=== PATIENT | male | born 1950 | race Caucasian/White ===

== ENCOUNTER 2017-02-07 21:53 | Observation (INO) | payer OTHER ==
--- NOTE | 2017-02-07 22:18 | EDPHY ---
H & P Stated Complaint: nose bleed since 1999, sent from [place] HPI/ROS: HPI CHIEF COMPLAINT: Epistaxis HISTORY OF PRESENT ILLNESS: This patient very pleasant 66-year-old male presents emergency room from [facility] with a epistaxis. Tells me around 8:20 a.m. developed a right Brush epistaxis. no trauma. He denies being on any blood thinners except aspirin. States that he went to [facility] for epistaxis where he had his nose packed the bleeding stops 3 hours and then return. He went back to [facility] and had a Pitt catheter placed for a right Brush posterior bleed and was transferred here to the emergency room. Upon arrival here in emergency room the patient is not overtly hypertensive, he is having a slow trickle of dark blood from the right Brush. On exam it does appear posterior. No bleeding at the left near. Past Medical History: Hypertension Past Surgical History: denies recent surgical history Social History: Smokes tobacco, denies alcohol drugs, lives in [facility] Family History: Noncontributory ROS REVIEW OF SYSTEMS: A comprehensive 10 point review of systems is otherwise negative aside from elements mentioned in the history of present illness. Exam Constitutional triage nursing summary reviewed, vital signs reviewed, awake/ alert. Eyes normal conjunctivae and sclera, EOMI, PERRLA. HENT bilateral narrow exam: Right Nare filled with bright red blood, appears to be posterior bleed, left knee are clear, posterior pharynx shows blood in the posterior I do not appreciate active arterial bleeding in the posterior pharynx., atraumatic, moist mucus membranes, no epistaxis, neck supple / no meningismus, no raccoon eyes. Respiratory clear to auscultation bilaterally, normal breath sounds, no respiratory distress, no wheezing. Cardiovascular rate normal, regular rhythm, no murmur, no edema, distal pulses normal. Gastrointestinal soft, non-tender, no rebound, no guarding, normal bowel sounds, no distension, no pulsatile mass. Genitourinary no CVA tenderness. Musculoskeletal no midline vertebral tenderness, full range of motion, no calf swelling, no tenderness of extremities, no meningismus, good pulses, neurovascularly intact. Skin pink, warm, & dry, no rash, skin atraumatic. Neurologic awake, alert and oriented x 3, AAOx3, moves all 4 extremities equally, motor intact, sensory intact, CN II-XII intact, normal cerebellar, normal vision, normal speech. Psychiatric normal mood/affect. Heme/Lymph/Immune no lymphadenopathy. Differential Diagnosis: Includes but is not limited to in a particular order, right Brush posterior epistaxis, arterial bleed, venous bleed. Medical Decision Making: Plan for this patient given that he was in [facility] in the emergency room twice with failure of to control of epistaxis patient be packed here bilaterally AP packing. Check basic blood work. Placed on monitoring manager. Check coags. Patient will most likely need to be admitted. Patient will most likely need to be admitted due to bilateral packing AP packing. And observation for epistaxis. Re-evaluation: Procedure: Epistaxis control. After verbal consent was obtained, the patient was anesthetized with Afrin. The anterior epistaxis was identified. The patient was treated with to AP rhino rocket packing. Following the procedure the patient was re-examined and the bleeding was well controlled. The patient tolerated the procedure well. The procedure was performed by myself. 1206AM: Patient continues to bleed. I consult ENT Dr. Lawrence. She plans on coming to the emergency room to evaluate the patient. 0113AM: Dr. Bowman with ENT has seen evaluated the patient. Plan to go to the OR to further explore the right epistaxis. Source: Patient - Personal History Current Tetanus/Diphtheria Vaccine: Yes Current Tetanus Diphtheria and Acellular Pertussis (TDAP): Yes - Medical/Surgical History Hx Asthma: No Hx Chronic Respiratory Disease: No Hx Diabetes: No Hx Cardiac Disease: No Hx Renal Disease: No Hx Cirrhosis: No Hx Alcoholism: No Hx HIV/AIDS: No Hx Splenectomy or Spleen Trauma: No Other PMH: denies - Social History Smoking Status: Former smoker Constitutional: Initial Vital Signs Temperature (C) 36.7 C 02/07/17 22:04 Heart Rate 109 H 02/07/17 22:04 Respiratory Rate 18 02/07/17 22:04 Blood Pressure 151/87 H 02/07/17 22:04 O2 Sat (%) 95 02/07/17 22:04 O2 Delivery Mode Room Air Allergies/Adverse Reactions: No Known Allergies Allergy (Unverified 02/07/17 22:03) Home Medications: Medication Instructions Recorded Aspirin 02/07/17 Medical Decision Making - Data Points Laboratory Results: Laboratory Results 02/07/17 22:50 02/07/17 22:50 02/07/17 02/07/17 02/07/17 22:50 22:50 22:50 WBC 15.60 10^3/uL H 10^3/uL (3.80-9.50) RBC 4.72 10^6/uL 10^6/uL (4.40-6.38) Hgb 14.8 g/dL g/dL (13.7-17.5) Hct 45.0 % % (40.0-51.0) MCV 95.3 fL fL (81.5-99.8) MCH 31.4 pg pg (27.9-34.1) MCHC 32.9 g/dL g/dL (32.4-36.7) RDW 14.2 % % (11.5-15.2) Plt Count 233 10^3/uL 10^3/uL (150-400) MPV 10.9 fL fL (8.7-11.7) Neut % (Auto) 76.9 % H % (39.3-74.2) Lymph % (Auto) 15.1 % % (15.0-45.0) [place] % (Auto) 6.9 % % (4.5-13.0) Eos % (Auto) 0.2 % L % (0.6-7.6) Baso % (Auto) 0.4 % % (0.3-1.7) Nucleat RBC Rel Count 0.0 % % (0.0-0.2) Absolute Neuts (auto) 11.99 10^3/uL H 10^3/uL (1.70-6.50) Absolute Lymphs (auto) 2.35 10^3/uL 10^3/uL (1.00-3.00) Absolute Monos (auto) 1.08 10^3/uL H 10^3/uL (0.30-0.80) Absolute Eos (auto) 0.03 10^3/uL 10^3/uL (0.03-0.40) Absolute Basos (auto) 0.07 10^3/uL 10^3/uL (0.02-0.10) Absolute Nucleated RBC 0.00 10^3/uL 10^3/uL (0-0.01) Immature Gran % 0.5 % % (0.0-1.1) Immature Gran # 0.08 10^3/uL 10^3/uL (0.00-0.10) PT 14.1 SEC SEC (12.0-15.0) INR 1.10 (0.83-1.16) APTT 27.1 SEC SEC (23.0-38.0) Sodium 138 mEq/L mEq/L (134-144) Potassium 4.7 mEq/L mEq/L (3.5-5.2) Chloride 110 mEq/L mEq/L (97-110) Carbon Dioxide 19 mEq/l L mEq/l (22-31) Anion Gap 9 mEq/L mEq/L (8-16) BUN 55 mg/dL H mg/dL (7-23) Creatinine 1.1 mg/dL mg/dL (0.7-1.3) Estimated GFR > 60 Glucose 117 mg/dL H mg/dL (70-100) Calcium 9.5 mg/dL mg/dL (8.5-10.4) Medications Given: Discontinued Medications Fentanyl (Sublimaze) 50 mcg IVP EDNOW ONE Stop: 02/07/17 22:41 Last Admin: 02/07/17 22:49 Dose: 50 mcg Sodium Chloride (Ns) 1,000 mls @ 0 mls/hr IV ONCE ONE PRN Reason: Wide Open Stop: 02/07/17 23:49 Last Admin: 02/07/17 23:00 Dose: 1,000 mls Oxymetazoline HCl (Afrin Nasal [place]) 2 sprays EACHNARE EDNOW ONE Stop: 02/07/17 23:46 Last Admin: 02/07/17 22:45 Dose: 30 spray Oxymetazoline HCl (Afrin Nasal [place]) 2 sprays EACHNARE EDNOW ONE Stop: 02/07/17 23:46 Last Admin: 02/07/17 22:45 Dose: 30 sprays Departure - Departure Disposition: To OP Cath/Surgery Clinical Impression: Epistaxis Condition: Serious Instructions: Nosebleed (ED) Referrals: Patient,NotPresent [Primary Care Provider] - As per Instructions
[2017-02-07] MEDS ORDERED: SILVER NITRATE APPLICATOR 1 APPL TP ONE (22:22)
[2017-02-07] MEDS ORDERED: OXYMETAZOLINE 30 ML NASAL SPRAY ONE (22:22)
[2017-02-07] MEDS ORDERED: fentaNYL 100 MCG/2 ML INJ ONE (22:40)
[2017-02-07] MEDS ORDERED: fentaNYL 100 MCG/2 ML INJ IVP ONE (22:40)
[2017-02-07 22:59] LABS: % IMMATURE GRANULYOCYTES 0.5 % (0.0-1.1); ABSOLUTE IMMATURE GRANULOCYTES 0.08 10^3/uL (0.00-0.10); ADD DIFF? NO; ADD MORPH? NO; ADD SCAN? NO; ATYPICAL LYMPHOCYTE FLAG 10 (0-99); FRAGMENT RBC FLAG 0 (0-99); HEMOGLOBIN 14.8 g/dL (13.7-17.5); LEFT SHIFT FLG 0 (0-99); LIPEMIA HEMOLYSIS FLAG 80 (0-99); MEAN CELL HEMOGLOBIN 31.4 pg (27.9-34.1); MEAN CELL HEMOGLOBIN CONCENTR. 32.9 g/dL (32.4-36.7); MEAN CELL VOLUME 95.3 fL (81.5-99.8); MEAN PLATELET VOLUME 10.9 fL (8.7-11.7); PLATELET CLUMPS FLAG 10 (0-99); PLATELET COUNT 233 10^3/uL (150-400); RED BLOOD CELL COUNT 4.72 10^6/uL (4.40-6.38); RED CELL DISTRIBUTION WIDTH 14.2 % (11.5-15.2)
[2017-02-07 23:08] LABS: APTT 27.1 SEC (23.0-38.0); INR 1.1 (0.83-1.16); PROTIME(PATIENT) 14.1 SEC (12.0-15.0)
[2017-02-07 23:15] LABS: ANION GAP 9 mEq/L (8-16); CALCIUM 9.5 mg/dL (8.5-10.4); CARBON DIOXIDE 19 mEq/l (22-31); CHLORIDE 110 mEq/L (97-110); CREATININE 1.1 mg/dL (0.7-1.3); GLOMERULAR FILTRATION RATE > 60; GLUCOSE 117 mg/dL (70-100); POTASSIUM 4.7 mEq/L (3.5-5.2); SODIUM 138 mEq/L (134-144)
[2017-02-07] MEDS ORDERED: ONDANSETRON 4 MG/2 ML VIAL ONE (23:19)
[2017-02-07] MEDS ORDERED: OXYMETAZOLINE 30 ML NASAL SPRAY EACHNARE ONE ×2 (23:45)
[2017-02-07] MEDS ORDERED: NS 1,000 ML IV ONE (23:48)
[2017-02-07] MEDS ORDERED: ONDANSETRON 4 MG/2 ML VIAL IVP ONE (23:55)
[2017-02-08] MEDS ORDERED: LIDOCAINE 2% JELLY 20 ML (UROJECT) ONE (00:16)
[2017-02-08] MEDS ORDERED: LIDOCAINE 2% 5 ML SDV ONE (00:22)
[2017-02-08] MEDS ORDERED: ceFAZolin 2 GM/DEXTROSE 100 ML IV ONE (01:08)
[2017-02-08] MEDS ORDERED: CEFAZOLIN 2 GM/DEXTROSE/100 ML BAG IV ONE (01:09)
[2017-02-08] MEDS ORDERED: LIDO/EPI 1% **Not for Epidural 20 ML MDV ONE (01:14)
[2017-02-08] MEDS ORDERED: COCAINE HCL 4% 4 ML BTL TP ONE (01:21)
[2017-02-08] MEDS ORDERED: D5W 1/2 NS 1,000 ML IV SCH (01:30)
[2017-02-08] MEDS ORDERED: ACETAMINOPHEN 325 MG TAB PO PRN (01:30)
[2017-02-08] MEDS ORDERED: ONDANSETRON 4 MG/2 ML VIAL IVP PRN (01:30)
[2017-02-08] MEDS ORDERED: oxyCODONE IR 5 MG TAB PO PRN (01:35)
[2017-02-08] MEDS ORDERED: MIDAZOLAM 2 MG/2 ML VIAL ONE (01:40)
[2017-02-08] MEDS ORDERED: DEXAMETHASONE 4 MG/ML VIAL ONE (01:45)
[2017-02-08] MEDS ORDERED: ONDANSETRON 4 MG/2 ML VIAL ONE (01:45)
[2017-02-08] MEDS ORDERED: LIDOCAINE 2% 100 MG/5 ML SYR ONE (01:45)
[2017-02-08] MEDS ORDERED: fentaNYL 100 MCG/2 ML INJ ONE (01:45)
[2017-02-08] MEDS ORDERED: PROPOFOL 200 MG/20 ML VIAL ONE (01:46)
[2017-02-08] MEDS ORDERED: SUGAMMADEX SODIUM 200 MG/2 ML VIAL IVP ONE (01:48)
[2017-02-08] MEDS ORDERED: ROCURONIUM 50 MG/5 ML VIAL ONE (01:48)
[2017-02-08] MEDS ORDERED: PHENYLEPHRINE HCL 100 MCG/ML SYR ONE ×2 (01:58→02:25)
--- NOTE | 2017-02-08 02:10 | GHP ---
[f rep st] HISTORY AND PHYSICAL DATE OF ADMISSION: 02/08/2017 REFERRING PHYSICIAN: Shola Norris MD CHIEF COMPLAINT: Posterior epistaxis. HISTORY OF PRESENTING ILLNESS: The patient is a 66-year-old male who had acute onset of brisk, primarily right-sided epistaxis at 8:30 this morning. He lives in [place] and presented to [facility]. Muscle packs were attempted at that point; eventually, he was packed with Vaseline gauze and discharged home. He was stable for approximately 4 hours when he had recurrence of the bleeding. He went back to [facility] and was subsequently transferred down here, to [facility], for further management and care. Upon arrival at [facility], Dr. Norris also attempted multiple packs, both unilaterally and bilaterally, and at one point, a Pitt balloon catheter was attempted. None of these were successful in controlling his bleeding. The patient had intermittent robust bleeding, first on the right and then occasionally from the left, and then out the mouth, raising the suspicion of a significant posterior nose bleed. The patient denies ever having had this problem before. He has no known risk factors for posterior nosebleed. He denies a history of cardiac disease, hypertension, or diabetes. He does reportedly take aspirin on occasion, primarily for bilateral knee pain but none in the last 48 hours. He is on no other nasal medications. PAST MEDICAL HISTORY: He has a remote history approximately 6 years ago of hypertension. He was placed on oral medications for approximately 6 months and then taken off. He denies any other significant medical problems including diabetes or heart disease, or pulmonary disease. PAST SURGICAL HISTORY: TKA SOCIAL HISTORY: He is retired. He lives at [place]. He is a current daily smoker. ALLERGIES: None. CURRENT HOME MEDICATIONS: None. PHYSICAL EXAMINATION: GENERAL: He is awake, alert and oriented, in mild amount of distress in the emergency department when I first met him. He had bilateral nasal balloon packs that were essentially nearly out of his nasal cavity; these were removed. There is some blood behind each tympanic membrane. Oral cavity exam is blood stained, but otherwise clean at the moment. NECK: Supple without adenopathy or mass. Trachea is midline. Voice is normal. Respirations normal. LUNGS: Clear to auscultation. HEART: Regular rate and rhythm. PROCEDURE: The packs were removed. I suctioned free most of the clot on the left side; this appeared to be fairly clean. Limited view of the posterior nasopharynx on this showed some clot but mostly, it was coming from the right side. The right side of the nose had significant clot; this was suctioned free. He eventually blew out a very large clot, and then brisk bleeding ensued. There was a decision that it might be coming very high superiorly, but in the end, I suspect, based on where the clot and most of the blood was accumulating, was probably the sino-palatine artery on the right side. Scope was withdrawn. IMPRESSION: Posterior epistaxis. RECOMMENDATIONS: I had a long discussion with the patient and his prior to the bleeding beginning. We had discussed multiple options. Given what he has been through today, we all agreed that probably going to the operating room with him asleep to try and control this is the best choice. The risks, benefits and alternatives of control of posterior epistaxis were discussed and I reviewed with him that possibilities could include cautery, endoscopic clipping of either the sino-palatine artery or the anterior ethmoid artery requiring an external ligation were possible, as well as formal anterior/ posterior packing. The risks of all this includes persistent bleeding despite the above, infection, as well as the remote possibility of blindness in one or both eyes, as well as numbness of the V2 distribution on the cheek of the face. He signed the consent. The decision was made to go to the operating room tonight. A total of 90 minutes was spent [id number] with the patient and his , greater than 50% was counseling and coordinating care prior to going to the operating room. /[id number]/MODL MTDD
[2017-02-08] MEDS ORDERED: EPINEPHrine 30 MG/30 ML MDV ONE (02:41)
[2017-02-08] MEDS ORDERED: DIAZEPAM 10 MG/2 ML SYR ONE (03:29)
--- NOTE | 2017-02-08 03:29 | POSTOPPROG ---
Post Op Note Date of Operation: 02/08/17 Surgeon: Brii Bowman [place] Tester: none Pre-op Diagnosis: posterior epistaxis Post-op Diagnosis: same Indication: epistaxis uncontrolled with packing in ED Procedure: complex control of epistaxis-incl SPA ligation, cautery and MM packing Findings: see op note Inf/Abcess present in the surg proc area at time of surgery?: No Depth: Superfical (Skin SQ)
--- NOTE | 2017-02-08 04:36 | GOP ---
[f rep st] OPERATIVE REPORT DATE OF OPERATION: 02/08/2017 SURGEON: rBii Bowman MD ANESTHESIA: General endotracheal. PREOPERATIVE DIAGNOSIS: Right-side posterior epistaxis. POSTOPERATIVE DIAGNOSIS: Right-side posterior epistaxis, with questionable anterior ethmoid artery involvement. PROCEDURE PERFORMED: 1. Endoscopic sphenopalatine artery ligation. 2. Cautery of posterior midseptal bleeding vessel. 3. Packing of the middle meatus. FINDINGS: 1. Active bleeding vessel midposterior septum right cauterized with suction Bovie cautery. 2. Persistent blood collection through the middle meatus into the posterior nasopharynx with unclea r source. 3. Right-side sphenopalatine artery ligated with endoscopic clips. 1. Middle meatus packed with 2 Tashi packs. 4. SPECIMENS: None. ESTIMATED BLOOD LOSS: 150 cc; including some swallowed blood, decompression of the stomach. INDICATIONS: Patient is a 66-year-old male who initially presented at 8:30 in the morning on 2016 with brisk likely posterior epistaxis, initially controlled for about 4 hours using Vaseline ga uze packing by the emergency department, [facility]. Patient returned home and he das d subsequent severe bleeding, and was transferred down [facility] for further management and care. The emergency department doctor at [facility] also made multiple attempts at packing his nose, but was unable to stop the bleeding. I was called in, and saw the patient in the desktop support engineer just after midnight on 02/08/2017. He had active bleeding that was poorly controlled, with Rapid Rhinos in place. I attempted examination in the emergency department with a 0-degree rigid endoscope, but was unable to localize the bleeding although I suspected the sphenopalatine artery was involved as most of the clot within the nose was surrounding the posterior nasopharynx. Risks, benefits, and al ternatives of going to the operating room to control the bleeding in a complicated manner were discu ssed. Specific risks including blindness, recurrent bleeding, infection were all discussed. Urgent decision to proceed to the operating room upon meeting the patient in the emergency department was made at that time. DESCRIPTION OF PROCEDURE: The patient was transferred up from the emergency department to the opera tin room. Time-out was performed. He was transferred supine to the operative table, underwent rap id sequence induction of general anesthesia without any difficulties, with an endotracheal tube plac ed. He was then positioned, prepped and draped in a standard fashion. I began with a 0-degree rigi d endoscope in the left side-this typically was not the most symptomatic side and would only start b leeding if the right side was inadequately packed. This all appeared to be relatively normal once t he blood was suctioned free. There is a posterior-inferior spur and relatively prominent turbinates . The left inferior turbinate was lateralized just to facilitate this exposure with the Boies eleva tor. I then examined the right side. Careful inspection with both a 0-degree and 30-degree rigid endosco pe was made throughout the entire nasal cavity. This included the entire floor of the nasal cavity, the septum, the skull base, as well as the middle meatus. The above findings as described were not ed. I began with cautery of the most obvious vessel in the midposterior septum. This was with the suction Bovie cautery. This adequately controlled this bleeding, and then I inspected the nose agai n for a period of 5 minutes. There seemed to be persistent oozing of blood, primarily in middle idania tus but extending somewhat down toward the sphenopalatine artery. I therefore opted to perform a sp henopalatine artery ligation. Additional lidocaine with epinephrine was infiltrated into the maxill jens line and a submucoperichondrial flap was elevated until the sphenopalatine artery was revealed. Using small endoscopic clips, this was clipped twice and the mucosal flap was laid back in place. I again examined the nasal cavity. There did seem to be a reduction of all the blood collecting. W e attempted to raise the patient's blood pressure to test this and see if there was any further blee ding, and we were never really able to get his blood pressure up to an adequate amount to determine if there was going to be any further bleeding, specifically from the anterior ethmoid artery. At th is point, I opted, instead of performing an external ligation near the eye, to take 2 Tashi packs and pack this into the middle meatus in a targeted and somewhat firm fashion. This was expanded usi ng sterile saline and then secured to his face. At this point, the nose was suctioned free of any e xcess blood. An orogastric tube was also passed and his stomach was decompressed of approximately 1 00 cc of old dried blood. At this point, the patient was then turned to Anesthesia for wake-up. Upon waking up, he did have q uite a Valsalva and I reexamined his nose very quickly upon extubation and the packs in the middle m eatus did appear to be more red than prior, but were still holding good pressure and there was no ac tive dripping of blood and his oral cavity was clean. At the end of this procedure, all sponge, needle, and sharp counts were correct. I personally perfo rmed all portions of this case. /[id number]/MODL
[2017-02-08] MEDS: CEPHALEXIN 500 MG CAP PO SCH ×2 (05:40→11:49)
[2017-02-08] MEDS ORDERED: LORazepam 1 MG TAB PO PRN (06:42)
[2017-02-08 07:45] VITALS: RESP 18
[2017-02-08 11:54] VITALS: BP 135/80; PULSE 101; TEMP 98.9; O2SAT 95
--- NOTE | 2017-02-08 14:07 | GDS ---
[f rep st] DISCHARGE SUMMARY ADMISSION DIAGNOSIS: Posterior epistaxis. DISCHARGE DIAGNOSIS: Posterior epistaxis. HOSPITAL COURSE: The patient is a 66-year-old male who failed multiple attempts at control of epist axis by 2 different ERs. I took him to the operating room in the director of clinical services of 02/08/2017 for sp henopalatine artery ligation, cautery of a posterior septal artery, as well as packing of the middle meatus for tamponade on possible anterior ethmoid contribution of the bleeding. Overnight, after the procedure, he was monitored. There was no evidence of further bleeding. He fe lt quite well. Vital signs are stable. I did not retract a crit as he had no other symptomatic fea tures of anemia and had control of the bleeding. He was maintained on good pain control as well as prophylactic antibiotics. His only complaint at discharge is some insomnia. DISCHARGE MEDICATIONS: 1. Cephalexin 500 mg t.i.d. x7 days. 2. Oxycodone 5 mg immediate release p.o. q.4 hours p.r.n. pain. 3. Ambien 5 mg p.o. q.h.s. p.r.n. insomnia. Home medications: The only home medication he normally takes is aspirin as needed for joint pain. I have advised him to hold this for at least 2 weeks until his last evidence of any bleeding from th e nose. ALLERGIES: None. DISPOSITION: Home without services, with followup with me in the clinic in [facility], either next Friday or Friday, and my office will coordinate. /[id number]/MODL
== END 2017-02-08 14:23 | disposition home or self-care (01) ==
LOC: F3E 02-08 03:55
PROVIDERS: ADMIT Otolaryngology; ATTEND Otolaryngology
DX: R04.0 Epistaxis (principal); F17.210 Nicotine dependence, cigarettes, uncomplicated
CPT/HCPCS: 30901; 30905; G0378; 96365; J0690; J1100; J2001; J2250; J2370; J2405; J2704; J3010